=== PATIENT | female | born 2000 | race Caucasian/White ===

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

== ENCOUNTER 2024-06-15 18:04 | Emergency (ER) | payer SELFPAY ==
[~2024-06-15] VITALS: Ht 167.6 cm; Wt 63.5 kg
[2024-06-15 18:11] VITALS: TEMP 98
[2024-06-15] MEDS ORDERED: IBUPROFEN 600 MG TABLET ONE (19:17)
[2024-06-15] MEDS ORDERED: ONDANSETRON 4 MG TAB.RAPDIS ONE (19:17)
[2024-06-15] MEDS: IBUPROFEN 600 MG TABLET PO ONE (19:21)
[2024-06-15] MEDS: ONDANSETRON 4 MG TAB.RAPDIS SL ONE (19:21)
[2024-06-15 19:23] VITALS: BP 110/84; O2SAT 98
[2024-06-15] MEDS ORDERED: ONDA4TAB5 PO (19:27)
== END 2024-06-15 19:31 | disposition home or self-care (01) ==
LOC: ER 18:08
DX: R07.9 Chest pain, unspecified (principal); R11.0 Nausea
CPT/HCPCS: 99283; 71045; 93005; Q0162